=== PATIENT | male | born 1965 | race Caucasian/White ===

== ENCOUNTER 2017-10-11 15:42 | Emergency (ER) | payer OTHER ==
[2017-10-11 16:06] VITALS: BP 132/81
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
== END 2017-10-11 16:46 | disposition home or self-care (01) ==
LOC: CED 15:42
DX: S49.92XA Unspecified injury of left shoulder and upper arm, initial encounter (principal); V49.40XA Driver injured in collision with unspecified motor vehicles in traffic accident, initial encounter; Y92.410 Unspecified street and highway as the place of occurrence of the external cause; Y99.8 Other external cause status; Y93.89 Activity, other specified
CPT/HCPCS: A4565